=== PATIENT | female | born 2000 | race Caucasian/White ===

== ENCOUNTER 2022-05-25 21:08 | Emergency (ER) | payer BC, SELFPAY ==
[2022-05-25 21:14] VITALS: BP 127/82; PULSE 105; RESP 18; TEMP 36.6; O2SAT 99; BMI 25.8
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
[2022-05-25 22:26] VITALS: BP 127/82; PULSE 105; RESP 18; TEMP 36.6
[2022-05-25 22:27] VITALS: BP 120/78; PULSE 99; RESP 18; TEMP 36.6; O2SAT 99
== END 2022-05-25 22:27 | disposition home or self-care (01) ==
LOC: ED 22:25
PROVIDERS: Emergency Provider Emergency Medicine Emergency Medical Services
DX: S06.0X0A Concussion without loss of consciousness, initial encounter (principal); V47.0XXA Car driver injured in collision with fixed or stationary object in nontraffic accident, initial encounter
CPT/HCPCS: 99283; 99284